=== PATIENT | female | born 1975 | race American Indian/Alaskan Native ===

== ENCOUNTER 2022-09-08 20:17 | Emergency (ER) | payer OTHER ==
[2022-09-08] MEDS ORDERED: BABY ASPIRIN 81 MG CHEW PO ONE (20:57)
--- NOTE | 2022-09-08 20:58 | ERPHSYRPT ---
- History of Present Illness Time Seen by Provider: 09/08/22 20:40 Historian: patient Exam Limitations: no limitations Patient Subjective Stated Complaint: Chest pain Triage Nursing Assessment: Patient ambulated back to ED and transferred self to bed. Patient A+O X 3. Patient's skin pink, warm and dry. Patient complains of chest pain that started at 0600 that goes into left side of breast. Physician History: Patient is a 47-year-old female presents to our ED for evaluation of chest pain. Patient has a history of high cholesterol. She is a current smoker. Chest pain started approximately 6:00 this morning. Chest pain has been ongoing since. Patient states symptoms are getting progressively worse. Pain is loc alized to the left chest. Pain tends to radiate to the left shoulder. No associated nausea vomiting or diaphoresis. Symptoms are constant and progressive. Symptoms are moderate in intensity. No specific worsening improving factors. No trauma. No fever. Patient voices no other complaints or concerns at this time. Portions of this note were created with voice recognition technology. There may be grammatical, spelling, punctuation or sound alike errors Timing/Duration: today Activities at Onset: none Quality: aching Location: other (Left chest) Chest Pain Radiation: arm Severity of Pain-Max: moderate Severity of Pain-Current: mild Modifying Factors: Improves With: other (Manual pressure to left breast reproduces symptoms.) Associated Symptoms: denies symptoms Prior Chest Pain/Cardiac Workup: no prior chest pain Nitro Today/Relief: no nitro taken today Aspirin Treatment Today: no aspirin today Allergies/Adverse Reactions: No Known Drug Allergies Allergy (Unverified 09/08/22 20:19) Home Medications: Levothyroxine Sodium [Levothyroxine] 1 tab PO DAILY 09/08/22 [History] Simvastatin 20Mg [Zocor 20Mg] 1 tab PO DAILY 09/08/22 [History] Hx Influenza Vaccination/Date Given: No Hx Pneumococcal Vaccination/Date Given: No Immunizations Up to Date: Yes Travel Risk - International Travel Have you traveled outside of the country in past 3 weeks: No - Coronavirus Screening Are you exhibiting any of the following symptoms?: No Close contact with a COVID-19 positive Pt in past 14-21 Days: No - Vaccine Status Have you recieved a Covid-19 vaccination: No - Review of Systems Constitutional: No Symptoms, No Fever, No Chills Eyes: No Symptoms Ears, Nose, & Throat: No Symptoms Respiratory: No Symptoms, No Cough, No Dyspnea Cardiac: No Symptoms, No Chest Pain, No Edema, No Syncope Abdominal/Gastrointestinal: No Symptoms, No Abdominal Pain, No Nausea, No Vomiting, No Diarrhea Genitourinary Symptoms: No Symptoms, No Dysuria Musculoskeletal: No Symptoms, No Back Pain, No Neck Pain Skin: No Symptoms, No Rash Neurological: No Symptoms, No Dizziness, No Focal Weakness, No Sensory Changes Psychological: No Symptoms Endocrine: No Symptoms Hematologic/Lymphatic: No Symptoms Immunological/Allergic: No Symptoms All Other Systems: Reviewed and Negative - Past Medical History Pertinent Past Medical History: Yes Neurological History: No Pertinent History, Epilepsy Cardiac History: No Pertinent History, High Cholesterol Respiratory History: No Pertinent History Endocrine Medical History: Hypothyroidism Musculoskeletal History: No Pertinent History GI Medical History: No Pertinent History History: No Pertinent History Psycho-Social History: No Pertinent History Female Reproductive Disorders: No Pertinent History - Past Surgical History Past Surgical History: No Neuro Surgical History: No Pertinent History Cardiac: No Pertinent History Respiratory: No Pertinent History Gastrointestinal: No Pertinent History Genitourinary: No Pertinent History Musculoskeletal: No Pertinent History Female Surgical History: No Pertinent History - Social History Smoking Status: Current every day smoker How long have you smoked: days Exposure to second hand smoke: Yes Drug Use: none Patient Lives Alone: No - Female History Hx Last Menstrual Period: two weeks ago Hx Now: No - Nursing Vital Signs Nursing Vital Signs: Initial Vital Signs Temperature 97.6 F 09/08/22 20:23 Pulse Rate 71 09/08/22 20:23 Respiratory Rate 22 09/08/22 20:23 Blood Pressure 174/107 09/08/22 20:23 O2 Sat by Pulse Oximetry 99 09/08/22 20:23 Pain Scale Pain Intensity 5 - Physical Exam General Appearance: no apparent distress, alert Eye Exam: PERRL/EOMI, eyes nml inspection Ears, Nose, Throat Exam: normal ENT inspection, moist mucous membranes Neck Exam: normal inspection, non-tender, supple, full range of motion Respiratory Exam: normal breath sounds, lungs clear, No respiratory distress Cardiovascular Exam: regular rate/rhythm, normal heart sounds, normal peripheral pulses, other (Tenderness palpation left chest wall.) Gastrointestinal/Abdomen Exam: soft, No tenderness, No mass Back Exam: normal inspection, No CVA tenderness, No vertebral tenderness Extremity Exam: normal inspection, normal range of motion Neurologic Exam: alert, oriented x 3, cooperative, normal mood/affect, sensation nml, No motor deficits Skin Exam: normal color, warm, dry Lymphatic Exam: No adenopathy SpO2 Interpretation: normal SpO2: 98 O2 Delivery: Room Air - Course Nursing assessment & vital signs reviewed: Yes EKG Interpreted by Me: RATE (66), Sinus Rhythm (Left bundle branch block. ) - Radiology Exams Chest X-ray Interpretation: Interpreted by me (Tiny left lung granuloma. Bibasilar atelectasis. Otherwise clear lungs. Normal cardiac silhouette. Intact bony thorax) Ordered Tests: Active Orders 24 hr Category Date Time Status AMA [Release AMA] OM.NOW Care 09/08/22 22:43 Active Digital Cartographer STAT Care 09/08/22 20:38 Active EKG-ER Only STAT Care 09/08/22 20:37 Active IV Insertion STAT Care 09/08/22 20:37 Active Pulse Oximetry (ED) STAT Care 09/08/22 20:37 Active CHEST 1 VIEW (PORTABLE) Stat Exams 09/08/22 22:25 Taken CBC W DIFF Stat Lab 09/08/22 20:56 Completed CMP Stat Lab 09/08/22 20:56 Completed D-DIMER QUANTITATIVE Stat Lab 09/08/22 20:56 Completed NT PRO BNP Stat Lab 09/08/22 20:56 Completed TROPONIN Q4H Lab 09/08/22 20:56 Completed Medication Summary Discontinued Medications Generic Name Dose Route Start Last Admin Trade Name Freq PRN Reason Stop Dose Admin Aspirin 324 mg 09/08/22 20:57 09/08/22 21:01 Aspirin 81 Mg Tab.Chew PO 09/08/22 20:58 324 mg STAT ONE Administration Aspirin Confirm 09/08/22 21:00 Aspirin 81 Mg Tab.Chew Administered 09/08/22 21:01 Dose 324 mg .ROUTE .STK-MED ONE Lab/Rad Data: Laboratory Result Diagrams 09/08/22 20:56 09/08/22 20:56 Laboratory Results 09/08/22 09/08/22 09/08/22 Range/Units 20:56 20:56 20:56 WBC (4.0-10.5) x10^3/uL RBC (4.1-5.4) x10^6/uL Hgb (12.0-16.0) g/dL Hct (35-47) % MCV (78-100) fL MCH (26-32) pg MCHC (32-36) g/dL RDW (11.5-14.0) % Plt Count (150-450) x10^3/uL MPV (7.5-11.0) fL Gran % (36.0-66.0) % Immature Gran % (Auto) (0.00-0.4) % Nucleat RBC Rel Count (0.00-0.1) % Eos # (Auto) (0-0.5) x10^3/uL Immature Gran # (Auto) (0.00-0.03) x10^3u/L Absolute Lymphs (auto) (1.0-4.6) x10^3/uL Absolute Monos (auto) (0.0-1.3) x10^3/uL Absolute Nucleated RBC (0.00-0.01) x10^3u/L Lymphocytes % (24.0-44.0) % Monocytes % (0.0-12.0) % Eosinophils % (0.00-5.0) % Basophils % (0.0-0.4) % Absolute Granulocytes (1.4-6.9) x10^3/uL Basophils # (0-0.4) x10^3/uL D-Dimer 0.24 (0.0-0.50) mg/L Sodium 138 (137-145) mmol/L Potassium 4.2 (3.5-5.1) mmol/L Chloride 104 (98-107) mmol/L Carbon Dioxide 26 (22-30) mmol/L Anion Gap 12.3 (5-15) MEQ/L BUN 7 (7-17) mg/dL Creatinine 0.74 (0.52-1.04) mg/dL Estimated GFR > 60.0 ML/MIN Glucose 100 (74-106) mg/dL Calcium 9.1 (8.4-10.2) mg/dL Total Bilirubin 0.40 (0.2-1.3) mg/dL AST 26 (14-36) U/L ALT 20 (0-35) U/L Alkaline Phosphatase 81 (38-126) U/L Troponin I < 0.012 (0.000-0.034) ng/mL NT-Pro-B Natriuret Pep 34.2 (0-450) pg/mL Serum Total Protein 8.0 (6.3-8.2) g/dL Albumin 4.8 (3.5-5.0) g/dL 09/08/22 Range/Units 20:56 WBC 8.3 (4.0-10.5) x10^3/uL RBC 4.62 (4.1-5.4) x10^6/uL Hgb 13.4 (12.0-16.0) g/dL Hct 42.3 (35-47) % MCV 91.6 (78-100) fL MCH 29.0 (26-32) pg MCHC 31.7 L (32-36) g/dL RDW 13.2 (11.5-14.0) % Plt Count 290 (150-450) x10^3/uL MPV 9.9 (7.5-11.0) fL Gran % 56.7 (36.0-66.0) % Immature Gran % (Auto) 0.4 (0.00-0.4) % Nucleat RBC Rel Count 0.0 (0.00-0.1) % Eos # (Auto) 0.17 (0-0.5) x10^3/uL Immature Gran # (Auto) 0.03 (0.00-0.03) x10^3u/L Absolute Lymphs (auto) 2.87 (1.0-4.6) x10^3/uL Absolute Monos (auto) 0.48 (0.0-1.3) x10^3/uL Absolute Nucleated RBC 0.00 (0.00-0.01) x10^3u/L Lymphocytes % 34.6 (24.0-44.0) % Monocytes % 5.8 (0.0-12.0) % Eosinophils % 2.0 (0.00-5.0) % Basophils % 0.5 (0.0-0.4) % Absolute Granulocytes 4.71 (1.4-6.9) x10^3/uL Basophils # 0.04 (0-0.4) x10^3/uL D-Dimer (0.0-0.50) mg/L Sodium (137-145) mmol/L Potassium (3.5-5.1) mmol/L Chloride (98-107) mmol/L Carbon Dioxide (22-30) mmol/L Anion Gap (5-15) MEQ/L BUN (7-17) mg/dL Creatinine (0.52-1.04) mg/dL Estimated GFR ML/MIN Glucose (74-106) mg/dL Calcium (8.4-10.2) mg/dL Total Bilirubin (0.2-1.3) mg/dL AST (14-36) U/L ALT (0-35) U/L Alkaline Phosphatase (38-126) U/L Troponin I (0.000-0.034) ng/mL NT-Pro-B Natriuret Pep (0-450) pg/mL Serum Total Protein (6.3-8.2) g/dL Albumin (3.5-5.0) g/dL - Progress Progress: improved Air Movement: good Progress Note: Patient is a 47-year-old female presents to our ED for evaluation of chest pain. Physical exam findings reveals chest pain and some tenderness over the left breast. However it is unclear whether this is the only cause of patient's symptoms. Patient has some significant cardiac risk factors. Patient's presentation was acute. Symptoms started this morning. Complexity of patient's complaint is moderate. Patient is a smoker history of high cholesterol. These comorbidities contribute to the complexity of patient's symptoms. Work-up includes chest x-ray which was essentially unremarkable. CBC CMP D- dimer. D-dimer negative. BNP negative. Initial troponin negative. Patient received a dose of aspirin. While in our ED patient complained of ongoing/worsening chest pain. We advised admission. Patient states that she declined admission. Patient left AGAINST MEDICAL ADVICE. Patient states she has an appointment scheduled with Dr. Saldivar tomorrow. Patient states she believes in homeopathic medicine and prefers to be treated with homeopathic medicine versus Western medicine. Patient agrees to follow-up with Dr. Alonzo tomorrow as planned. Patient agrees to return to our ED if symptoms continue or worsen. Level of EM service provided was moderate. Patient's presenting problem is chest pain. Complexity is moderate. Amount and complexity of data reviewed and analyzed was moderate. Risks of complication and/or risk of morbidity/mortality of patient management is low No critical care time. Patient served as an independent historian. She is competent to provide full HPI. Time spent during discharge is approximately 10 minutes. Patient voices no other complaints or concerns at this time. Patient is of sound mind. Patient is appropriate to make informed and independent medical decisions. Patient understands that leaving AGAINST MEDICAL ADVICE can result in delayed diagnosis, increased risk of morbidity, mortality, short and long-term disability including . In spite of these risks, patient has decided to leave AGAINST MEDICAL ADVICE. Patient understands that she may return to our ED at any point if she reconsiders. Patient agrees to follow-up with her primary care doctor within 48 hours for reevaluation. Patient voices no other complaints or concerns at this time. We will release patient AGAINST MEDICAL ADVICE per her request. Portions of this note were created with voice recognition technology. There may be grammatical, spelling, punctuation or sound alike errors 09/08/22 22:51 Blood Culture(s) Obtained: No Antibiotics given: No Counseled pt/family regarding: lab results, diagnosis, need for follow-up, rad results - Departure Departure Disposition: AMA Clinical Impression: Chest pain, Abnormal EKG Condition: Stable Critical Care Time: No Referrals: MANAN SALDIVAR MD [Primary Care Provider] - Follow up/PCP as directed Additional Instructions: Discharge/Care Plan JAMILAH LEE was seen on 09/08/22 in the Emergency Room. The patient was counseled regarding Diagnosis,Lab results, Imaging studies, need for follow up and when to return to the Emergency Room. Prescriptions given: Discharge Note I have spoken with the patient and/or caregivers. I have explained the patient's condition, diagnosis and treatment plan based on the information available to me at this time. I have answered the patient's and/or caregiver's questions and addressed any concerns. The patient and/or caregivers have as good understanding of the patient's diagnosis, condition and treatment plan as can be expected at this point. The vital signs have been stable. The patient's condition is stable and appropriate for discharge from the emergency department. The patient will pursue further outpatient evaluation with the primary care physician or other designated or consulting physician as outlined in the discharge instructions. The patient and/or caregivers are agreeable to this plan of care and follow-up instructions have been explained in detail. The patient and/or caregivers have received these instruction. The patient/and or caregivers are aware that any significant change in condition or worsening of symptoms should prompt an immediate return to this or the closest emergency department or call 911.
[2022-09-08 21:00] LABS: Absolute Neutrophil Ct (ANC) 4.71 x10^3/uL (1.4-6.9); BASOPHIL % 0.5 % (0.0-0.4); Basophil (Absolute #) 0.04 x10^3/uL (0-0.4); Eosinophil (Absolute #) 0.17 x10^3/uL (0-0.5); Hematocrit 42.3 % (35-47); Hemoglobin 13.4 g/dL (12.0-16.0); IMMATURE GRAN # 0.03 x10^3u/L (0.00-0.03); IMMATURE GRAN % 0.4 % (0.00-0.4); Lymphocyte (Absolute #) 2.87 x10^3/uL (1.0-4.6); Lymphocytes % 34.6 % (24.0-44.0); Mean Cell Volume 91.6 fL (78-100); Mean Corpuscular Hgb Concent. 31.7 g/dL (32-36); Mean Platelet Volume 9.9 fL (7.5-11.0); Monocyte (Absolute #) 0.48 x10^3/uL (0.0-1.3); Monocytes % 5.8 % (0.0-12.0); Neutrophil % 56.7 % (36.0-66.0); Platelet Count 290 x10^3/uL (150-450); Red Blood Count 4.62 x10^6/uL (4.1-5.4); Red Cell Distribution Width 13.2 % (11.5-14.0); White Blood Count 8.3 x10^3/uL (4.0-10.5)
[2022-09-08] MEDS ORDERED: BABY ASPIRIN 81 MG CHEW ONE (21:00)
[2022-09-08 21:23] LABS: ALBUMIN 4.8 g/dL (3.5-5.0); ALKALINE PHOSPHATASE 81 U/L (38-126); ANION GAP 12.3 MEQ/L (5-15); BLOOD UREA NITROGEN 7 mg/dL (7-17); CHLORIDE 104 mmol/L (98-107); Calcium 9.1 mg/dL (8.4-10.2); Carbon Dioxide 26 mmol/L (22-30); Creatinine 1 0.74 mg/dL (0.52-1.04); EST GLOMERULAR FILTRATION RATE > 60.0 ML/MIN; Glucose 100 mg/dL (74-106); NT PRO BNP 34.2 pg/mL (0-450); Potassium 4.2 mmol/L (3.5-5.1); SGOT/AST 26 U/L (14-36); SGPT/ALT 20 U/L (0-35); SODIUM 138 mmol/L (137-145)
[2022-09-08 22:41] VITALS: BP 143/96; PULSE 69
[2022-09-08 22:49] VITALS: O2SAT 98
--- NOTE | 2022-09-09 08:39 | XRAY ---
Indication: Chest pain. Comparison: None Portable chest demonstrates normal heart and lungs. Bony thorax intact with mild degenerative changes.
== END 2022-09-08 22:54 | disposition left against medical advice (07) ==
LOC: ED 20:17
DX: R07.9 Chest pain, unspecified (principal); R94.31 Abnormal electrocardiogram [ECG] [EKG]; E78.5 Hyperlipidemia, unspecified; Z79.899 Other long term (current) drug therapy; Z28.310 Unvaccinated for COVID-19; Z72.0 Tobacco use
CPT/HCPCS: 36000; 36415; 71045; 80053; 83880; 84484; 85025; 85379; 93005; 93041; 94760; 99284; A9270-GY

== ENCOUNTER 2023-02-08 14:51 | Emergency (ER) | payer OTHER ==
--- NOTE | 2023-02-08 14:59 | ERPHSYRPT ---
- History of Present Illness Time Seen by Provider: 02/08/23 14:58 Source: patient Exam Limitations: no limitations Physician History: This is a 47-year-old white female patient who presents emergency department with blister of the right palm that became infected per her report after working in the yard without gloves 2 days in a row. Patient's primary care provider is Dr. Saldivar. After the first day of working in the yard, patient had right hand palmar blister and she applied ice water and bacitracin ointment to the site. She continued to work the next day in the similar fashion and another blister formed in the same area which became infected. This morning, the patient drained pus from the blister site. She is concerned that there may be still some infection present and therefore she came into the emergency department for evaluation and to be placed on some antibiotics. She has not had any fevers. Timing/Duration: day(s) (2) Quality: burning Severity: mild Location: hands (Right hand palmar aspect) Associated Symptoms: denies symptoms Allergies/Adverse Reactions: No Known Drug Allergies Allergy (Verified 02/08/23 15:07) Home Medications: Levothyroxine Sodium [Levothyroxine] 1 tab PO DAILY 09/08/22 [History] Simvastatin 20Mg [Zocor 20Mg] 1 tab PO DAILY 09/08/22 [History] Hx Influenza Vaccination/Date Given: No Hx Pneumococcal Vaccination/Date Given: No Travel Risk - International Travel Have you traveled outside of the country in past 3 weeks: No - Coronavirus Screening Are you exhibiting any of the following symptoms?: No Close contact with a COVID-19 positive Pt in past 14-21 Days: No - Vaccine Status Have you recieved a Covid-19 vaccination: No - Review of Systems Constitutional: No Symptoms Eyes: No Symptoms Ears, Nose, & Throat: No Symptoms Respiratory: No Symptoms Cardiac: No Symptoms Abdominal/Gastrointestinal: No Symptoms Genitourinary Symptoms: No Symptoms Musculoskeletal: No Symptoms Skin: Other (Palmar aspect central blister with redness) Neurological: No Symptoms Psychological: No Symptoms Endocrine: No Symptoms Hematologic/Lymphatic: No Symptoms Immunological/Allergic: No Symptoms All Other Systems: Reviewed and Negative - Past Medical History Pertinent Past Medical History: Yes Neurological History: No Pertinent History, Epilepsy Cardiac History: No Pertinent History, High Cholesterol Respiratory History: No Pertinent History Endocrine Medical History: Hypothyroidism Musculoskeletal History: No Pertinent History GI Medical History: No Pertinent History History: No Pertinent History Psycho-Social History: No Pertinent History Female Reproductive Disorders: No Pertinent History - Past Surgical History Past Surgical History: No Neuro Surgical History: No Pertinent History Cardiac: No Pertinent History Respiratory: No Pertinent History Gastrointestinal: No Pertinent History Genitourinary: No Pertinent History Musculoskeletal: No Pertinent History Female Surgical History: No Pertinent History - Social History Smoking Status: Current every day smoker How long have you smoked: days Exposure to second hand smoke: Yes Drug Use: none Patient Lives Alone: No - Nursing Vital Signs Nursing Vital Signs: Initial Vital Signs Temperature 97.3 F 02/08/23 14:58 Pulse Rate 88 02/08/23 14:58 Blood Pressure 157/97 02/08/23 14:58 O2 Sat by Pulse Oximetry 96 02/08/23 14:58 Pain Scale Pain Intensity 10 - Physical Exam General Appearance: no apparent distress, alert, anxiety Eye Exam: PERRL/EOMI, eyes nml inspection Ears, Nose, Throat Exam: normal ENT inspection, moist mucous membranes Neck Exam: normal inspection, non-tender, supple, full range of motion Respiratory Exam: airway intact, No chest tenderness, No respiratory distress Gastrointestinal/Abdomen Exam: No tenderness Pelvic Exam: not done Rectal Exam: not done Back Exam: normal inspection, normal range of motion, No CVA tenderness, No vertebral tenderness Extremity Exam: normal range of motion, pelvis stable, tenderness (And redness under a blister that is present in the central portion of her right hand palmar aspect. No obvious pus present. No proximal streaking) Neurologic Exam: alert, oriented x 3, cooperative, records clerk II-XII nml as tested, normal mood/affect, nml cerebellar function, nml station & gait, sensation nml Skin Exam: normal color, warm, dry, other (See above extremity exam) Lymphatic Exam: No adenopathy SpO2 Interpretation: normal O2 Delivery: Room Air - Course Nursing assessment & vital signs reviewed: Yes - Progress Progress: unchanged Progress Note: 02/08/23 15:20 This patient's medical issue is 1 of low complexity. The level complexity and the work-up performed is based on review of the patient's past medical history and review of the patient's medication list, review of the patient's drug allergy list, history present illness and physical findings on examination. This patient does not require laboratory studies or radiographic studies. She has redness tenderness in the area of a blister of her right hand palmar aspect. Patient reports draining pus from the site this morning. I think it is reasonable to go ahead and put her on Keflex 500 mg orally now followed by 7-day prescription sent remotely to her pharmacy. Patient is to keep the area clean with soap and water daily and to use Tylenol and ibuprofen for pain control. She can follow-up with her primary care provider for further evaluation management. Counseled pt/family regarding: diagnosis, need for follow-up Medical Desision Making - Independent Historian Additional History obtained from: Mother - Diagnostic Testing Diagnostic test were ordered, analyzed, and reviewed by me: No - Risk of complications The pt has a mod risk of morbidity or mortality based on: Need for prescription drug management - Departure Departure Disposition: Home Clinical Impression: Infected blister of right hand Condition: Stable Critical Care Time: No Referrals: MANAN SALDIVAR MD [Primary Care Provider] - Follow up/PCP as directed Additional Instructions: Keep the blistered area clean daily with soap and water. Use Tylenol and ibuprofen for pain control. Keep the blister site bandage daily. Follow-up with your primary care provider for further evaluation and management. Prescriptions: Cephalexin Mh 500 mg [Keflex 500 mg] 500 mg PO TID #21 cap
[2023-02-08 15:07] VITALS: PULSE 88
[2023-02-08] MEDS ORDERED: KEFLEX 500 MG PO ONE (15:23)
[2023-02-08] MEDS ORDERED: KEFLEX 500 MG ONE (15:31)
[2023-02-08 15:49] VITALS: BP 139/87; O2SAT 95
== END 2023-02-08 15:52 | disposition home or self-care (01) ==
LOC: ED 14:51
DX: S60.521A Blister (nonthermal) of right hand, initial encounter (principal); L08.9 Local infection of the skin and subcutaneous tissue, unspecified; X50.3XXA Overexertion from repetitive movements, initial encounter; Y93.H2 Activity, gardening and landscaping; Y92.007 Garden or yard of unspecified non-institutional (private) residence as the place of occurrence of the external cause; E78.5 Hyperlipidemia, unspecified; Z79.899 Other long term (current) drug therapy; Z28.310 Unvaccinated for COVID-19; Z72.0 Tobacco use
CPT/HCPCS: 99281; A9270-GY